=== PATIENT | male | born 1980 | race Caucasian/White ===

== ENCOUNTER 2020-06-29 03:01 | Emergency (ER) | payer OTHER, SELFPAY ==
[2020-06-29] MEDS ORDERED: Fentanyl 100 MCG/2 ML VIAL ONE ×2 (03:09→05:02)
[2020-06-29] MEDS ORDERED: Ketamine 50 MG/ML (10ML VIAL) ONE (04:20)
[2020-06-29] MEDS ORDERED: Iopamidol-370 76% 500 ML 1 ML ONE (08:58)
== END 2020-06-29 05:46 | disposition short-term general hospital (02) ==
LOC: ERS 03:01
DX: S06.5X0A Traumatic subdural hemorrhage without loss of consciousness, initial encounter (principal); S27.0XXA Traumatic pneumothorax, initial encounter; S12.030A Displaced posterior arch fracture of first cervical vertebra, initial encounter for closed fracture; S12.300A Unspecified displaced fracture of fourth cervical vertebra, initial encounter for closed fracture; S12.110A Anterior displaced Type II dens fracture, initial encounter for closed fracture; S22.32XA Fracture of one rib, left side, initial encounter for closed fracture; S27.322A Contusion of lung, bilateral, initial encounter; V89.2XXA Person injured in unspecified motor-vehicle accident, traffic, initial encounter; Y92.411 Interstate highway as the place of occurrence of the external cause
CPT/HCPCS: 51701; 70450; 71260; 72125; 74177; 80053; 80306; 80307; 81003; 81015; 83690; 85025; 94760; 96374; 96375; 96376; G0390; J3010; Q9967; U0002

== ENCOUNTER 2022-12-09 23:32 | Emergency (ER) | payer OTHER, SELFPAY | END 2022-12-10 02:00 | LOC: ERS 23:32 | DX: S06.9X9A Unspecified intracranial injury with loss of consciousness of unspecified duration, initial encounter (principal); S00.432A Contusion of left ear, initial encounter; S00.03XA Contusion of scalp, initial encounter; S60.511A Abrasion of right hand, initial encounter; F17.210 Nicotine dependence, cigarettes, uncomplicated; Y04.2XXA Assault by strike against or bumped into by another person, initial encounter; Y92.149 Unspecified place in prison as the place of occurrence of the external cause | CPT/HCPCS: 70450; 70486; 72125 ==